=== PATIENT | female | born 1975 | race Caucasian/White ===

== ENCOUNTER 2021-03-01 13:20 | Emergency (ER) | payer OTHER ==
[~2021-03-01] VITALS: Ht 162.6 cm; Wt 60.3 kg
[2021-03-01 13:27] VITALS: BP 117/86
--- NOTE | 2021-03-01 13:51 | NUR ---
RADIOLOGY AT BEDSIDE FOR R ELBOW XRAY.
[2021-03-01] MEDS ORDERED: KETOROLAC TROMETHAMINE 15 MG/ML VIAL ONE (13:52)
[2021-03-01] MEDS ORDERED: KETOROLAC TROMETHAMINE INJ 30 MG/ML VIAL IM ONE (14:00)
[2021-03-01] MEDS ORDERED: CEPH500C2 PO (14:32)
[2021-03-01] MEDS ORDERED: MUPI22OI2 TP (14:32)
[2021-03-01] MEDS ORDERED: IBUP-1955 PO (14:32)
== END 2021-03-01 14:44 | disposition home or self-care (01) ==
LOC: ER 13:26
DX: S50.311A Abrasion of right elbow, initial encounter (principal); L03.113 Cellulitis of right upper limb; M71.121 Other infective bursitis, right elbow; Z90.89 Acquired absence of other organs; X58.XXXA Exposure to other specified factors, initial encounter; Y93.89 Activity, other specified; Y92.89 Other specified places as the place of occurrence of the external cause; Y99.8 Other external cause status
CPT/HCPCS: 73080; 96372; 99283; J1885